=== PATIENT | male | born 1950 | race Caucasian/White ===

== ENCOUNTER 2020-11-15 08:59 | Outpatient (RCR) | payer OTHER | END 2021-02-13 | disposition home or self-care (01) | LOC: PT | DX: Z98.890 Other specified postprocedural states (principal) ==

== ENCOUNTER 2021-04-03 08:56 | Outpatient (RCR) | payer OTHER | END 2021-04-14 23:59 | disposition home or self-care (01) | LOC: PT 08:56 | DX: M54.16 Radiculopathy, lumbar region (principal) ==

== ENCOUNTER 2021-04-17 09:00 | Outpatient (RCR) | payer OTHER | END 2021-05-15 | disposition home or self-care (01) | LOC: PT | DX: M54.16 Radiculopathy, lumbar region (principal) ==

== ENCOUNTER 2021-05-19 09:00 | Outpatient (RCR) | payer OTHER | END 2021-06-12 | disposition home or self-care (01) | LOC: PT | DX: M54.16 Radiculopathy, lumbar region (principal) ==

== ENCOUNTER → 2024-03-17 | Outpatient (CLI) | payer MEDICARE, BC | LOC: RAD 12:39 | DX: M79.631 Pain in right forearm (principal); W19.XXXA Unspecified fall, initial encounter ==

== ENCOUNTER 2024-06-18 07:57 | Outpatient (RCR) | payer OTHER | END 2024-07-03 08:18 | disposition home or self-care (01) | LOC: PT 07:57 | DX: M19.011 Primary osteoarthritis, right shoulder (principal) ==